=== PATIENT | male | born 1960 | race Caucasian/White ===

== ENCOUNTER 2020-02-24 07:46 | Day surgery (SDC) | payer BC ==
[2020-02-19 16:28] VITALS: BMI 27.3
[2020-02-24] MEDS ORDERED: LIDOCAINE HCL/PF 2% SDV 5ML VIAL ONE (08:20)
[2020-02-24] MEDS ORDERED: PROPOFOL 20 ML ONE ×2 (08:20)
[2020-02-24 12:22] VITALS: TEMP 98.4
[2020-02-24 12:25] VITALS: BP 127/77; PULSE 84
== END 2020-02-24 10:05 | disposition home or self-care (01) ==
LOC: FASU-ENDO 07:46
PROVIDERS: ATTEND Internal Medicine Gastroenterology
PROC: 0DJD8ZZ Inspection of Lower Intestinal Tract, Via Natural or Artificial Opening Endoscopic (ICD-10-PCS; principal; 2020-02-24 09:09)
DX: Z12.11 Encounter for screening for malignant neoplasm of colon (principal); K57.30 Diverticulosis of large intestine without perforation or abscess without bleeding
CPT/HCPCS: 82962

== ENCOUNTER 2020-05-03 11:59 | Emergency (ER) | payer BC ==
[2020-05-03 12:35] LABS: BASO % 0.5 % (0-2.0); HEMATOCRIT 43.2 % (35.4-49); HEMOGLOBIN 14.4 GM/dl (11.7-16.9); MCH 30.1 pg (25.7-33.7); MCHC 33.4 g/dl (32.0-35.9); MEAN CELL VOLUME 90.1 fl (80-96); MEAN PLT VOLUME 9.3 fl (7.5-11.1); MONO % 9.1 % (3.8-10.2); NEUT % 77.4 % (42.8-82.8); PLATELET COUNT 195 K/MM3 (134-434); RDW 13.1 % (11.9-15.9); WHITE BLOOD COUNT 7.5 K/mm3 (4.0-10.8)
[2020-05-03 12:38] VITALS: BMI 27.3
[2020-05-03] MEDS ORDERED: SODIUM CHLORIDE 1,000 ML IV STA ×2 (12:50→15:00)
[2020-05-03 12:52] LABS: ALBUMIN 3.3 g/dl (3.4-5.0); BILIRUBIN,TOTAL 1.4 mg/dl (0.2-1); CALCIUM 8.9 mg/dl (8.5-10); CREATININE 1.7 mg/dl (0.55-1.3); POTASSIUM 3.7 mmol/L (3.5-5.1); TOT PROT 6.9 g/dl (6.4-8.2)
--- NOTE | 2020-05-03 12:56 | PDOC ---
History of Present Illness - General Chief Complaint: Lightheaded Stated Complaint: LIGHTHEADED Time Seen by Provider: 05/03/20 12:07 - History of Present Illness Initial Comments: 05/03/20 12:51 59 M with h/o DM, HTN, HLD presenting to ED with lightheadedness and chills. Pt states that 2 days ago he began to have chills and rigors. Denies ever spiking a fever. He notes he had a mild cough yesterday that has resolved. Today, pt was in [facility] when he began to feel very lightheaded, prompting him to come to the ER. Denies LOC. Pt denies any N/V/D. Endorses poor PO over the past 2 days due to lack of appetite. Denies abdominal pain. Pt is taking 2 HTN meds - dilt and losartan/HCTZ. Past History - Medical History Allergies/Adverse Reactions: Allergies Allergy/AdvReac Type Severity Reaction Status Date / Time No Known Allergies Allergy Verified 05/03/20 12:01 Home Medications: Ambulatory Orders Aspirin [Ecotrin] 81 mg PO DAILY 02/19/20 Cholecalciferol (Vitamin D3) [Vitamin D3] 50 mcg PO DAILY 02/19/20 Diltiazem Cd [Cardizem Cd -] 300 mg PO DAILY 02/19/20 Ezetimibe 10 mg PO DAILY 02/19/20 Gemfibrozil 600 mg PO BID 02/19/20 Losartan/Hydrochlorothiazide [Losartan-Hctz 100-12.5 mg Tab] 1 each PO DAILY 02/19/20 Rosuvastatin [Crestor -] 20 mg PO DAILY 02/19/20 metFORMIN HCL [Glucophage -] 500 mg PO BID 02/19/20 Anemia: No Asthma: No Cancer: No Cardiac Disorders: No CVA: No COPD: No CHF: No Dementia: No Diabetes: Yes GI Disorders: No Disorders: No HTN: Yes Hypercholesterolemia: Yes Liver Disease: No Seizures: No Thyroid Disease: No - Surgical History Abdominal Surgery: Yes (BILATERAL INGUINAL HERNIA REPAIRS) Appendectomy: No Cardiac Surgery: No Cholecystectomy: No Lung Surgery: Yes (RIGHT LOBECTOMY) Neurologic Surgery: No - Psycho-Social/Smoking History Smoking History: Never smoked Have you smoked in the past 12 months: No Information on smoking cessation initiated: No - Substance Abuse Hx (Audit-C & DAST Scrn) How often the patient has a drink containing alcohol: Never Score: In Men: 4 or > Positive; In Women: 3 or > Positive: 0 Screen Result (Pos requires Nsg. Audit-10AR): Negative In the last yr the pt used illegal drug/Rx for NonMed reason: No Score: Yes response is considered Positive: 0 Screen Result (Positive result requires Nsg. DAST-10): Negative Review of Systems - Review of Systems Comments:: 05/03/20 12:54 GENERAL/CONSTITUTIONAL: + chills, + lightheadedness, No fever HEAD, EYES, EARS, NOSE AND THROAT: No change in vision. No ear pain or discharge. No sore throat. CARDIOVASCULAR: No chest pain, no shortness of breath, no loss of consciousness RESPIRATORY: No cough, wheezing, or hemoptysis. GASTROINTESTINAL: No nausea, vomiting, diarrhea or constipation. GENITOURINARY: No dysuria, frequency, or change in urination. MUSCULOSKELETAL: No joint or muscle swelling or pain. No neck or back pain. SKIN: No rash NEUROLOGIC: No vertigo, no change in strength/sensation. ENDOCRINE: No increased thirst. No abnormal weight change. HEMATOLOGIC/LYMPHATIC: No anemia, easy bleeding, or history of blood clots. ALLERGIC/IMMUNOLOGIC: No hives or skin allergy. *Physical Exam - Vital Signs Last Vital Signs Temp Pulse Resp BP Pulse Ox 98.1 F 63 18 76/46 L 99 05/03/20 12:00 05/03/20 12:00 05/03/20 12:00 05/03/20 12:00 05/03/20 12:00 - Physical Exam 05/03/20 12:55 "GENERAL: Awake, alert, and fully oriented, in no acute distress. HEAD: No signs of trauma EYES: PERRLA, EOMI, sclera anicteric, conjunctiva clear ENT: Auricles normal inspection, hearing grossly normal, nares patent, oropharynx clear without exudates. Moist mucosa NECK: Nontender, no stepoffs, Normal ROM, supple, no lymphadenopathy, JVD, or masses LUNGS: Breath sounds equal, clear to auscultation bilaterally. No wheezes, and no crackles HEART: Regular rate and rhythm, normal S1 and S2, no murmurs, rubs or gallops ABDOMEN: Soft, nontender, normoactive bowel sounds. No guarding, no rebound. No masses EXTREMITIES: Normal range of motion, no edema. No clubbing or cyanosis. No cords, erythema, or tenderness NEUROLOGICAL: Cranial nerves II through XII intact. 5/5 strength and sensation in all extremities, Normal speech, normal gait, normal cerebellar function SKIN: Warm, Dry, normal turgor, no rashes or lesions noted. ED Treatment Course - LABORATORY CBC & Chemistry Diagram: 05/03/20 12:30 05/03/20 12:30 - ADDITIONAL ORDERS Additional order review: 05/03/20 12:30 RBC 4.80 MCV 90.1 MCHC 33.4 RDW 13.1 MPV 9.3 Neutrophils % 77.4 Lymphocytes % 13.0 Monocytes % 9.1 Eosinophils % 0.0 Basophils % 0.5 Medical Decision Making - Medical Decision Making 05/03/20 12:55 59 M with chills and lightheadedness. Pt hypotensive in ED but not tachycardic. Possibly 2/2 calcium channel kaylin. Pt afebrile in ED but will evaluate for infectious process. Also may be volume depleted 2/2 poor PO intake. - labs - CXR, UA - IV fluids 05/03/20 14:52 CXR with no acute process Labs notable for mild HOLA, likely 2/2 dehydration Pt also with mild transaminitis. No abdominal pain or tenderness on exam. Pt reassessed - states he feels much better after fluids. Repeat BP now normal. 05/03/20 15:20 Pt ambulatory in ED with no lightheadedness, now asymptomatic. Vitals stable Pt is well appearing, with normal vitals. Clinically stable for DC at this time. I discussed the physical exam findings, ancillary test results and final diagnoses with the patient. I answered all of the patient's questions. The patient was satisfied with the care received and felt comfortable with the discharge plan and treatment plan. The patient agrees to follow up with the primary care physician within 24-72 hours. Discharge - Discharge Information Problems reviewed: Yes Clinical Impression/Diagnosis: Lightheadedness, Dehydration Condition: Stable Disposition: HOME - Follow up/Referral - Patient Discharge Instructions Patient Printed Discharge Instructions: DI for Dehydration -- Adult Additional Instructions: Your lightheadedness is likely due to dehydration. Drink plenty of fluids to stay hydrated. Your chills may be due to an infection. If you experience recurrent lightheadedness, fevers, abdominal pain, chest pain, cough, or any other concerning symptoms, return to the ER immediately. Your bloodwork today showed slightly elevated liver enzymes. Please follow up with your primary doctor within 1 week to have this rechecked. - Post Discharge Activity
[2020-05-03 13:06] LABS: ACTIVATED PTT 25.7 SECONDS (25.2-36.5)
[2020-05-03 13:10] LABS: INR 1.25 (0.82-1.09); PROTHROMBIN TIME (PATIENT) 13.9 SEC (10.2-13.0)
[2020-05-03 13:45] LABS: N-TERMINAL BNP 390.1 pg/ml (5-125)
[2020-05-03 14:21] LABS: EPITHELIAL CELLS FEW /hpf
[2020-05-03 15:14] VITALS: BP 102/64; PULSE 63; TEMP 97.8
--- NOTE | 2020-05-04 11:41 | EKG ---
Test Reason : Blood Pressure : / mmHG Vent. Rate : 055 BPM Atrial Rate : 055 BPM P-R Int : 200 ms QRS Dur : 086 ms QT Int : 428 ms P-R-T Axes : 059 039 050 degrees QTc Int : 409 ms SINUS BRADYCARDIA OTHERWISE NORMAL ECG WHEN COMPARED WITH ECG OF 16-JUL-2003 09:18, NO SIGNIFICANT CHANGE WAS FOUND Confirmed by YASMINE MORALES MD ([id number]) on 05/04/2020 11:41:11 AM Referred By: JIM ELAINE Confirmed By:YASMINE MORALES MD
== END 2020-05-03 15:35 | disposition home or self-care (01) ==
LOC: FER 11:59
PROC: 3E0337Z Introduction of Electrolytic and Water Balance Substance into Peripheral Vein, Percutaneous Approach (ICD-10-PCS; principal; 2020-05-03)
DX: R42 Dizziness and giddiness (principal); E86.0 Dehydration
CPT/HCPCS: 36415; 71046-TC-FY; 80053; 81003; 81015; 82550; 83880; 84484; 85025; 85610; 85730; 87086; 93005; 99285-25